=== PATIENT | female | born 1960 | race Caucasian/White ===

== ENCOUNTER 2018-12-08 07:16 | Day surgery (SDC) | payer BC ==
[~2018-12-08] VITALS: Ht 167.6 cm; Wt 134.1 kg
--- NOTE | ~2018-12-08 | OP ---
PATIENT NAME: ALFONSO MCKEON MEDICAL RECORD: [id number] :64 LOCATION:D[facility] ADMISSION DATE: SURGEON: ARIAN MCLAUGHLIN DO DATE OF OPERATION: 12/08/2018 PROCEDURE: Colonoscopy with polypectomy and biopsies. INDICATIONS FOR PROCEDURE: Screening for colorectal cancer. SCOPE: [employer] video pediatric colonoscope. MEDICATIONS: Propofol 360 mg IV per anesthesia. WITHDRAWAL TIME: 19 minutes. ESTIMATED BLOOD LOSS: Minimal. COMPLICATIONS: None. FINDINGS: Informed consent was given. The patient was made comfortable with the above medication. After reaching an adequate level of sedation by slow IV push, the patient was placed on her left side. A digital rectal examination was performed and it was normal. The endoscope was then advanced under direct visualization through the rectum to the cecum and the terminal ileum. The endoscope was slowly withdrawn and mucosa was carefully examined. Prep quality was fair. There were 3 polyps visualized on today's examination. They were all benign-appearing and sessile. They ranged in size from 2-4 mm in diameter. One was located in the cecum, one was located in the transverse colon, and the final polyp was located in the descending colon. All of these polyps were removed using hot forceps. In the sigmoid colon, there was evidence of moderate diverticulosis with some evidence of diverticulitis. There were exudates and ulcerations as well as erythema and friability surrounding multiple diverticula within the sigmoid colon. The endoscope was withdrawn further into the rectum where there was some erythema and friability within the rectum itself. Random biopsies were taken with cold forceps of this site. The endoscope was then advanced back into the sigmoid colon and areas of colitis were biopsied with the cold forceps. Retroflexion was performed in the rectum with a normal appearing rectal wall. The endoscope was then withdrawn from the patient. The patient tolerated the procedure well and there were no complications. IMPRESSION: 1. Three polyps as described above, removed using hot forceps. 2. Colitis involving the sigmoid colon with evidence of diverticulitis. 3. Possible proctitis with biopsies pending. PLAN AND RECOMMENDATIONS: 1. Discharge home when recovery parameters are met. 2. Follow up biopsy specimen results. 3. High fiber diet. 4. Continue current medications. 5. Treat diverticulitis with Cipro 500 mg twice daily and Flagyl 500 mg t.i.d. times 10 days. 6. We will provide a prescription for nystatin swish and swallow as the patient has a history of thrush with Flagyl. 7. Recall colonoscopy no later than 3 years. This may need to be repeated OPERATIVE REPORT [id number] ALFONSO MCKEON sooner pending results of biopsy specimens taken today. TRANSINT:[id number] Voice Confirmation ID: [id number] DOCUMENT ID: [id number] ARIAN MCLAUGHLIN DO CC: [id number] DICTATION DATE: 12/08/18 1002 [employer]: 12/08/18 1135 [facility] 12/08/18 [facility] [address] [place] [address]
[~2018-12-08 07:16] MED LIST: ALEVE220 MG PO; BAYER CHEWABLE81 MG PO; ELIQUIS2.5 MG PO; IBUPROFEN600 MG PO; LEVAQUIN500 MG PO; MS CONTIN15 MG PO; MULTIPLE VITAMI1 TA1 PO; OXYCODONE HCL5 MG PO; VITAMIN D31000 UNI2 PO
[2018-12-08 07:54] LABS: HEMATOCRIT 42.6 % (36.0-48.0); HEMOGLOBIN 14.3 g/dL (12-16); MCH 32.1 pg (26.0-34.0); MCHC 33.6 g/dL (31.0-37.0); MCV 95.5 fL (80.0-100.0); MEAN PLATELET VOLUME 10.9 fL (7.4-10.4); RBC 4.46 10x6/uL (4.00-5.40); RDW 13.1 % (11.5-14.5); WBC 9.1 10x3/uL (4.8-10.8)
[2018-12-08 08:03] VITALS: BP 138/84; Ht 167.6 cm; Wt 134.1 kg
[2018-12-08] MEDS ORDERED: LISINOPRIL10 MG PO (08:29)
[2018-12-08] MEDS ORDERED: MULTI-DAY VITAM1 TAB PO (08:31)
[2018-12-08] MEDS ORDERED: BAYER CHEWABLE81 MG PO (08:32)
--- NOTE | 2018-12-08 10:46 | NUR ---
IV REMOVED DISCHARGE INSTRUCTIONS GIVEN AND UNDERSTANDING NOTED. FAMILY AT BEDSIDE
== END 2018-12-08 10:50 | disposition home or self-care (01) ==
LOC: D.OPS 07:16
PROVIDERS: Anesthesiology; ATTEND Internal Medicine Gastroenterology
DX: Z12.11 Encounter for screening for malignant neoplasm of colon (principal); D12.0 Benign neoplasm of cecum; D12.4 Benign neoplasm of descending colon; D12.3 Benign neoplasm of transverse colon; K52.9 Noninfective gastroenteritis and colitis, unspecified; Z01.812 Encounter for preprocedural laboratory examination

== ENCOUNTER → 2019-02-28 07:40 | Outpatient (CLI) | payer BC ==
[2018-12-08 08:03] VITALS: BMI 47.7
[~2019-02-28 07:40] MED LIST changes: +LISINOPRIL10 MG PO; +MULTI-DAY VITAM1 TAB PO
[2019-02-28 08:02] LABS: BASOPHILS 0.4 % (0-2); EOSINOPHILS 2.1 % (0-7); HEMATOCRIT 42.7 % (36.0-48.0); HEMOGLOBIN 14.5 g/dL (12-16); IMMATURE GRANULOCYTES 0.3 % (0-5); LYMPHOCYTES 22.7 % (15-50); MCH 31.9 pg (26.0-34.0); MCV 93.8 fL (80.0-100.0); MEAN PLATELET VOLUME 10.2 fL (7.4-10.4); MONOCYTES 8.9 % (2-11); NEUTROPHILS 65.6 % (40-80); PLATELET COUNT 244 10x3/uL (130-400); RBC 4.55 10x6/uL (4.00-5.40); WBC 10.8 10x3/uL (4.8-10.8)
[2019-02-28 08:20] LABS: ALBUMIN 3.8 g/dL (3.4-5.0); ANION GAP 14.2 mmol/L (8-16); BILIRUBIN - TOTAL 0.35 mg/dL (0.2-1.3); CALCIUM 9.4 mg/dL (8.5-10.1); CREATININE - SERUM 1.1 mg/dL (0.6-1.3); POTASSIUM - SERUM 4.2 mmol/L (3.5-5.1); PROTEIN - SERUM 8.3 g/dL (6.4-8.2)
[2019-02-28 09:29] LABS: ERYTHROCYTE SEDIMENTATION RATE 31 mm/hr (0-30)
== END | disposition home or self-care (01) ==
LOC: D.CT 07:40
PROVIDERS: ATTEND Internal Medicine Gastroenterology
DX: K21.9 Gastro-esophageal reflux disease without esophagitis (principal); K92.1 Melena; R10.9 Unspecified abdominal pain; K57.30 Diverticulosis of large intestine without perforation or abscess without bleeding

== ENCOUNTER 2019-10-17 09:00 | Outpatient (CLI) | payer BC ==
[2018-12-08 08:03] VITALS: BMI 47.7
== END 2019-10-17 09:30 | disposition home or self-care (01) ==
LOC: D.MAMMO 09:00
PROVIDERS: ATTEND Family Medicine
DX: Z12.31 Encounter for screening mammogram for malignant neoplasm of breast (principal)

== ENCOUNTER 2019-11-30 10:00 | Outpatient (CLI) | payer BC ==
[2018-12-08 08:03] VITALS: BMI 47.7
== END 2019-11-30 11:00 | disposition home or self-care (01) ==
LOC: D.MAMMO 10:00
PROVIDERS: ATTEND Family Medicine
DX: R92.2 Inconclusive mammogram (principal)

== ENCOUNTER 2020-02-02 09:00 | Outpatient (CLI) | payer BC ==
[2018-12-08 08:03] VITALS: BMI 47.7
== END 2020-02-02 10:00 | disposition home or self-care (01) ==
LOC: D.MAMMO 09:00
PROVIDERS: ATTEND Surgery
DX: N63.11 Unspecified lump in the right breast, upper outer quadrant (principal)